=== PATIENT | female | born 1960 | race Caucasian/White ===

== ENCOUNTER → 2016-06-26 | Outpatient (CLI) | payer OTHER ==
[~2016-06-26] MED LIST: ACET-2321 PO; ALBU8.5H INH; ASPI-917 PO; CALC-52 PO; CALC-946 PO; DICL75TA5 PO; DIPH25CA6 PO; EPIN0.3P8 IM; GABA-338 PO; OMEP20TA11 PO; OXYC5TAB84 PO; POLY17PO6 PO; PRED5TAB PO; [UNRECOGNIZED DRUG - CODE] PO; [UNRECOGNIZED DRUG - OTHER] PO
== END ==
LOC: IMA 11:17
PROVIDERS: ATTEND Student in an Organized Health Care Education/Training Program
DX: Z78.0 Asymptomatic menopausal state (principal); E28.39 Other primary ovarian failure; M06.9 Rheumatoid arthritis, unspecified; Z87.828 Personal history of other (healed) physical injury and trauma; Z90.710 Acquired absence of both cervix and uterus

== ENCOUNTER 2017-04-22 15:52 | Inpatient (IN) ==
--- OUTSIDE RECORDS SUMMARY | 2017-04-22 16:24 | External Medical Summary | Continuity of Care Document ---
:1960 Author Organization [facility] Address [address] [place], [place] [id number] Phone Care Team Providers Name Role Phone Joanna Carlton MD Unavailable Unavailable Allergies, Adverse Reactions, Alerts Substance Reaction Severity Status gabapentin Suicidial Ideation Unknown Active latex Unknown Active sulfamethoxazole rash Unknown Active trimethoprim rash Unknown Active cephalexin rash Unknown Active ciprofloxacin rash Unknown Active CIPROFLOXACIN HCL rash Unknown Active Iodinated Contrast- Oral and IV Dye respiratory distress Unknown Active Medications Medication Instructions Dosage Effective Dates Status Comments (start - stop) estradiol 2 mg tablet TAKE ONE TABLET BY - Active MOUTH DAILY cyclobenzaprine 5 mg take 1 tablet by oral 5 MG - Active tablet route 3 times every day albuterol sulfate HFA 90 inhale 2 puff by - Active mcg/actuation aerosol inhalation route inhaler every 4 - 6 hours as needed diclofenac sodium 75 mg take 1 tablet by oral 75 MG - Active tablet,delayed release route 2 times every day EpiPen 0.3 mg/0.3 mL inject 0.3 milliliter 0.3 MG - Active injection, auto-injector by intramuscular route once as needed for anaphylaxis Humira 40 mg/0.8 mL - Active subcutaneous syringe kit magnesium 250 mg tablet - Active Move Free Joint Health - Active 750 mg-100 mg-1.65 mg-108 mg tablet potassium gluconate 550 - Active mg (90 mg) tablet prednisone 20 mg tablet take 1 tablet by oral 20 MG - Active route every day TID x 3d, BID x 3d, QD x 3d, 1/2 tab x 3d Prilosec 20 mg take 1 capsule by - Active capsule,delayed release oral route every day before a meal tramadol 50 mg tablet take 1 tablet by ORAL 50 MG - Active route every bedtime as needed turmeric root extract - Active 500 mg capsule Arthritis Pain Relief take 1 tablet by ORAL 650 MG - Active (acetaminophen) ER 650 route 2 times every mg tablet,extend release day as needed Vitamin D3 5,000 unit - Active tablet Problems Condition Effective Dates (start - stop) Clinical Status 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 exam (general) - (routine) w/o abn findings 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 Provider: est,40-64 Dea RICHARD, patient well (routine) w/o abn 8 700 Joanna yrs [address] woman exam findings [facility], 1522, (chief Center [address] [place] [address], complaint) , [facility], 120, Center [id number], [employer], [facility], [address], tel:[phone] [place] [address] , [facility], [address]. tel: tel:[phone] Gerhard [place] Symptomatic Ozzy-1 Teto Referring In Womens postprocedural 3-201 [place]. Provider: Dea RICHARD, ovarian 6 700 Joanna [address] failureMenopausal [facility], 1522, and female Center [address] [place], climacteric , [facility], [facility] 120, Center [id number], [place], [facility], [address], tel:[phone] [place] [address] , [facility], [address]. tel: tel:[phone] Gerhard [place] Symptomatic May-0 Teto Referring In Womens postprocedural 4-201 Mayelin. Provider: Dea RICHARD, ovarian failure 6 700 Joanna [address] [facility], [address], [address], [facility] [place], 120, Center [id number], [place], [facility], [address], tel:[phone] [place], [id number] , [place], [address]. tel: [phone] Associates [facility] Apr-2 Teto In Womens 1-201 Mayelin. [facility], 6 700 [facility] [address], [address] [place], [facility], 120, [id number], [place], [facility], tel:[phone] , . tel: [phone] Family History Family Member Diagnosis Age At Onset Paternal Grandfather Dementia Brother Hypertension Father Colon Cancer No family history of Uterine Cancer Mother Schizophrenia No family history of Stroke No family history of Pulmonary Embolism No family history of Cardiovascular Disease Maternal Grandmother Colon Cancer Mother Diabetes No family history of Venous Thrombosis No family history of Osteoporosis Father Hypertension No family history of Kidney Disease No family history of Breast Cancer No family history of Ovarian Cancer No family history of Lung Disease No family history of Epilepsy No family history of Thyroid Disorder Father Prostate Cancer Immunizations Vaccine Date Status Comments Unknown Payers Payer name Insurance type Covered constitution party ID Authorization(s) [facility] [id number] Social History Type Description Quantity Date Captured Alcohol Use Details Caffeine Use Details combo Tobacco Use Status Never smoked tobacco Smoking Status Never smoker Non-Smoking Tobacco Use : No Details Available : No Details Available Details Vital Signs Date / Height Weight BMI Pulse Blood Temperature Respiratory Body Head BMI Time: Rate Pressure Rate Surface Circumference percentile Area 65.50 240.00 39.3 77 143/2018 in lbs 3 /min mm[Hg] 1:55 kg/m PM eter (2) Chief Complaint And Reason For Visit Most recent encounter only, dated '04/01/2017 13:45'. an established patient well woman exam (chief complaint). Description: Needs her estrogen renewed. Has been off for awhile as she ran out of the med. Crying way too much and irritable without it. Reason For Referral Reason For Referral Unknown Plan Of Care Date Type Action Status Goal Lifestyle education regarding diet completed Date Type Problem Goal Intervention Status Start Date Unknown. History Of Present Illness Encounter Date Complaint History Of Present Illness an established patient well woman Needs her estrogen renewed. Has exam been off for awhile as she ran out of the med. Crying way too much and irritable without it. Functional Status Encounter Date Functional Assessment Cognitive Assessment Unknown Medications Administered Medication Instructions Dosage Effective Dates (start - stop) Status Comments Drug Treatment Unknown Instructions Date Instruction Additional Information Giving encouragement to exercise Related to Body mass index 39.0- 39.9 Lifestyle education regarding diet Related to Body mass index 39.0-39.9
[2017-04-22] MEDS ORDERED: AZITHROMYCIN IV 500 MG in NS 250ml 250 ML IV ONE (16:32)
[2017-04-22] MEDS ORDERED: METHYLPREDNISOLONE SOD SUCC 125mg/2ml INJECTION IVP ONE (16:32)
[2017-04-22] MEDS: ALBUTEROL/IPRATROPIUM 2.5mg-0.5mg/3ml NEB AEROSOL SCH ×3 (16:38→22:19)
--- NOTE | 2017-04-22 16:40 | Emergency Department Report ---
SOB HPI - General Chief Complaint: Shortness of Breath/Dyspnea Stated Complaint: diff breathing Time Seen by Provider: 04/22/17 16:17 Source: patient, RN notes reviewed, old records reviewed, other (PCM) Mode of arrival: wheelchair Limitations: no limitations - History of Present Illness 56yo woman presented to the ER by her PCM for evaluation of dyspnea. Pt has had seven days of URI sx. Last night, pt spiked a fever (Tmax 100.6'F); today, she could not handle her shortness of breath anymore. Pt presented to her PCMs office; after an initial duoneb, pt was not improved, so PCM sent pt to the ER for further eval/treatment. Pt arrives dyspneic, wheezing, with sinus congestion , and resp distress. MD Complaint: shortness of breath Onset (ago): day(s) (7) Context: recent illness Severity: severe Consistency/Duration: constant Relieving factors: oxygen, rest, bronchodilators Exacerbating factors: movement, inspiration Associated symptoms: fever, cough, wheezing, sputum production, nausea/vomiting Treatment prior to arrival: oxygen, bronchodilator - Related Data Home oxygen amount: none Home Medications Medication Instructions Recorded Confirmed Omeprazole Magnesium [Prilosec Otc] 20 mg PO DAILY #0 02/22/10 04/22/17 Ultram (Tramadol) 50 mg tablet 50 mg PO BID PRN tab 08/28/16 04/22/17 adalimumab 40 mg/0.8 mL 40 mg SQ WEEKLY each 08/28/16 04/22/17 subcutaneous pen kit Estrace (estradiol) 2 mg tablet 2 mg PO DAILY tab 02/19/17 04/22/17 Vitamin D3 (cholecalciferol) 1,000 1,000 unit PO DAILY cap 02/19/17 04/22/17 unit capsule cyclobenzaprine 5 mg tablet 5 mg PO Q8H PRN 02/19/17 04/22/17 Acetaminophen SR [Tylenol 650 mg PO BID 04/22/17 04/22/17 Arthritis] Albuterol HFA Inhaler [Ventolin 2 puff ORAL INH O PRN 04/22/17 04/22/17 Hfa 90 mcg/actuation] Calcium Carbonate [Calcium] 500 mg PO DAILY 04/22/17 04/22/17 Diclofenac Sodium 75 mg PO DAILY 04/22/17 04/22/17 EPINEPHrine Pen [Epipen] 0.3 mg IM PRN PRN 04/22/17 04/22/17 [place]-3/Dha/Epa/Fish Oil [Fish Oil 1 each PO DAILY 04/22/17 04/22/17 1,000 mg Softgel] Allergies Allergy/AdvReac Type Severity Reaction Status Date / Time shellfish derived Allergy Mild HIVES Verified 04/22/17 16:16 cephalexin Allergy Unknown RASH Unverified 04/22/17 16:16 ciprofloxacin Allergy Unknown RASH Unverified 04/22/17 16:16 Iodinated Contrast- Oral and Allergy Unknown SHORT OF Verified 04/22/17 16:16 IV Dye BREATH latex Allergy Unknown SHORT OF Unverified 04/22/17 16:16 BREATH sulfamethoxazole Allergy Unknown RASH Unverified 04/22/17 16:16 trimethoprim Allergy Unknown RASH Unverified 04/22/17 16:16 povidone-iodine AdvReac Unknown severe Unverified 04/22/17 16:16 itching if left on too long soap AdvReac Unknown severe Unverified 04/22/17 16:16 itching if left on too long Review of Systems All systems: reviewed and negative except as stated Constitutional: Reports: as per HPI, fever, weakness. Denies: chills, weight change, night sweats ENT: Reports: as per HPI, congestion. Denies: ear pain, throat pain, dental pain, hearing loss, epistaxis, dysphagia Respiratory: Reports: as per HPI, cough, dyspnea, wheezes. Denies: hemoptysis, stridor Gastrointestinal: Reports: as per HPI, nausea, vomiting. Denies: abdominal pain , diarrhea, constipation, hematemesis, melena, hematochezia [facility] Medical History (Last Reviewed 02/19/17 @ 21:37 by JOSE MANUEL Nair) Osteoarthritis (Chronic Medical) GERD (gastroesophageal reflux disease) (Chronic Medical) Colon polyps (Chronic Medical) Surgical History: hysterectomy. gallbladder. rt ulnar nerve transplant. Left TKA 2012(in [place]). Rt TKA [address] Elise. Nilson Hip 2016 Dr Elise. Exploration right hip incision with draining of sterile seroma in SQ tissues only. 2015. Family History: Family History (Last Reviewed 02/19/17 @ 21:37 by JOSE MANUEL Nair) Mother Arthritis Diabetes Father Colon cancer Prostate cancer Colon polyps High blood pressure Stroke Maternal Grandmother Arthritis Paternal Grandmother Colon cancer - Social History Smoking status: Never smoker Physical Exam - Limitations Limitations: no limitations - General General appearance: alert, in distress (Resp), obese - Head Head exam: atraumatic, normocephalic, normal inspection - Eye Eye exam: Present: normal appearance, PERRL, EOMI. Absent: scleral icterus - ENT ENT exam: Present: mucous membranes moist, TM's normal bilaterally, normal external ear exam. Absent: normal exam, normal oropharynx (Erythema with PND) - Neck Neck exam: Present: normal inspection, full ROM, trachea midline. Absent: tenderness, lymphadenopathy - Chest Chest inspection: Present: normal inspection, symmetric chest wall rise. Absent : tenderness, rash - Respiratory Respiratory exam: Present: respiratory distress, wheezes (Throughout), prolonged expiratory phase, crackles (In RLL). Absent: normal lung sounds bilaterally, stridor - Cardiovascular Cardiovascular exam: Present: regular rate, normal rhythm, normal heart sounds, +S1, +S2. Absent: systolic murmur, diastolic murmur, +S3, +S4 - Abdominal Exam Abdominal exam: Present: soft, normal bowel sounds. Absent: distention, tenderness, guarding, rebound, rigidity - Extremities Exam Extremities exam: Present: normal inspection, full ROM, normal capillary refill. Absent: tenderness, pedal edema - Skin Skin exam: Present: warm, dry, intact. Absent: rash - Neurological Exam Neurological exam: Present: alert, oriented X3, CN II-XII intact, normal gait. Absent: motor sensory deficit - Psychiatric Psychiatric exam: Present: flat affect Course - Consultations Consultation #1: Telehospitalist: Will admit for treatment. Requests ABG. Time: 18:42 Vital Signs Pulse Rate 99 04/22/17 16:32 Pulse Rate 99 04/22/17 16:32 Respiratory Rate 16 04/22/17 17:17 Pulse Oximetry 98 04/22/17 17:17 Shortness of Breath/Dyspnea - [facility] Narrative Medical decision making narrative: Pt cont to use accessory muscles. When discussing dispo, pt agrees to admission for further eval/treatment. - Differential Diagnosis Likely: acute exacerbation of chronic obstructive airways disease, congestive heart failure, community acquired pneumonia, asthma with exacerbation - Medical Records Attestation: I reviewed the patient's medical records. - Lab Data Attestation: I reviewed the patient's lab results. Result diagrams: 04/22/17 17:51 04/22/17 17:51 Lab Results 04/22/17 04/22/17 04/22/17 Range/Units 16:40 17:51 17:51 WBC 3.5 L (4.5-11.0) T/MM3 RBC 4.88 (4.00-5.20) M/MM3 Hgb 14.6 (12-16) GM/DL Hct 45.6 (36-46) % MCV 93.4 (80-100) UM3 MCH 29.9 (26-34) UUG MCHC 32.0 (31-37) GM/DL RDW Std Deviation 43.6 (36.9-50.2) FL Plt Count 165 (130-400) T/MM3 MPV 10.3 (9.4-12.4) UM3 Immature Gran % (Auto) 0.0 (0.0-0.5) % Neut % (Auto) 28.3 L (33-66) % Lymph % (Auto) 56.7 H (23-45) % [place] % (Auto) 11.9 H (0-9.0) % Eos % (Auto) 0.8 (0-4) % Baso % (Auto) 2.3 H (0-2) % Neut # (Auto) 1.0 L (1.8-7.7) T/MM3 Lymph # (Auto) 2.0 (1-4.8) T/MM3 [place] # (Auto) 0.4 (0-0.8) T/MM3 Eos # (Auto) 0.0 (0-0.5) T/MM3 Baso # (Auto) 0.1 (0-0.2) T/MM3 Abs Immat Gran (auto) 0.00 (0.00-0.03) T/MM3 Turbidity < 20 (0-20) Sodium 145 H (134-144) MEQ/L Potassium 3.3 L (3.6-5) MEQ/L Chloride 103 (98-107) MEQ/L Carbon Dioxide 28 (22-30) MEQ/L Anion Gap 14 (5-15) MEQ/L BUN 9.0 (7-17) MG/DL Creatinine 0.7 (0.7-1.2) MG/DL GFR Calculation 87 BUN/Creatinine Ratio 13 (6-26) RATIO Glucose 105 (65-110) MG/DL Calculated Osmolality 278 (261-280) MOSM/KG Calcium 9.2 (8.4-10.2) MG/DL Icterus Index < 2 (0-7) B-Natriuretic Peptide 22.6 (0-175) pg/mL Specimen Hemolysis < 15 (0-25) Influenza Type A (PCR) Positive A* (Negative) Influenza Type B (PCR) Negative (Negative) - Radiology Data Attestation: I reviewed the patient's radiology results. CXR: No acute CT pathology. - EKG Data EKG #1 EKG attestation: Yes: I reviewed and interpreted this EKG. EKG shows normal: sinus rhythm, axis, intervals, ST-T waves Voltage: c/w LVH Disposition Clinical Impression: Respiratory distress, Influenza A Disposition: 02 To [facility] Print Language: Belgian Condition: Stable Prescriptions: No Action Omeprazole Magnesium [Prilosec Otc] 20 mg PO DAILY #0 [place]-3/Dha/Epa/Fish Oil [Fish Oil 1,000 mg Softgel] 1 each PO DAILY Acetaminophen SR [Tylenol Arthritis] 650 mg PO BID Calcium Carbonate [Calcium] 500 mg PO DAILY EPINEPHrine Pen [Epipen] 0.3 mg IM PRN PRN PRN Reason: Prn Orders Diclofenac Sodium 75 mg PO DAILY Albuterol HFA Inhaler [Ventolin Hfa 90 mcg/actuation] 2 puff ORAL INH O PRN PRN Reason: Shortness Of Air/Wheezing adalimumab 40 mg/0.8 mL subcutaneous pen kit 40 mg SQ WEEKLY each cyclobenzaprine 5 mg tablet 5 mg PO Q8H PRN PRN Reason: muscle spasm Ultram (Tramadol) 50 mg tablet 50 mg PO BID PRN tab PRN Reason: pain Vitamin D3 (cholecalciferol) 1,000 unit capsule 1,000 unit PO DAILY cap Estrace (estradiol) 2 mg tablet 2 mg PO DAILY tab Referrals: Joanna Carlton MD [Family Provider] - Time of Disposition: 18:43 - Seen By: physician
[2017-04-22] MEDS: MAGNESIUM SULFATE 1gm PREMIX 1 GM/100 ML BAG IV SCH ×2 (18:53→19:10)
[2017-04-22 20:14] VITALS: BMI 36.4
[2017-04-22] MEDS ORDERED: LABETALOL 100mg/20ml INJECTION IVP PRN (20:52)
--- NOTE | 2017-04-22 21:02 | History & Physical Report ---
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 She reports that she has had a progressive cough since Friday of last week, as well as stuffy nose and sore throat. She reports that her pro air inhaler was helping her symptoms, but today it stopped helping. She reports mild fevers at home. She reports that her son had the flu a few weeks ago and she took Tamiflu prophylactic at that time and finished this last Friday. She went to her PCP's office and was given a duoneb at that time, this did not improve her symptoms and she was sent to ED for further evaluation and treatment. She was found to have influenza A, and to have respiratory distress. She was admitted for further treatment. Review of Systems All systems PM: 10-point ROS was reviewed, no additional remarkable complaints except Past Medical History Patient Stated Medical History Other HEENT Yes: Ear tube in Rt ear Gastroesophageal Reflux Yes: Takes Prilosec for GERD Disease Osteoarthritis Yes Clinic Medical History (Last Reviewed 02/19/17 @ 21:37 by JOSE MANUEL Nair) Osteoarthritis (Chronic Medical) GERD (gastroesophageal reflux disease) (Chronic Medical) Colon polyps (Chronic Medical) Surgical History: hysterectomy. gallbladder. rt ulnar nerve transplant. Left TKA 2012(in [place]). Rt TKA [address] Elise. Nilson Hip 2016 [address] Elise. Exploration right hip incision with draining of sterile seroma in SQ tissues only. 2015. Family History: Family History (Last Reviewed 02/19/17 @ 21:37 by JOSE MANUEL Nair) Mother Arthritis Diabetes Father Colon cancer Prostate cancer Colon polyps High blood pressure Stroke Maternal Grandmother Arthritis Paternal Grandmother Colon cancer Family History Updates: no updates - Social History Smoking status: Never smoker Medications Home Medications Medication Instructions Recorded Confirmed Type Omeprazole Magnesium [Prilosec Otc] 20 mg PO DAILY #0 02/22/10 04/22/17 History Ultram (Tramadol) 50 mg tablet 50 mg PO BID PRN tab 08/28/16 04/22/17 History adalimumab 40 mg/0.8 mL 40 mg SQ WEEKLY each 08/28/16 04/22/17 History subcutaneous pen kit Estrace (estradiol) 2 mg tablet 2 mg PO DAILY tab 02/19/17 04/22/17 History Vitamin D3 (cholecalciferol) 1,000 1,000 unit PO DAILY cap 02/19/17 04/22/17 History unit capsule cyclobenzaprine 5 mg tablet 5 mg PO Q8H PRN 02/19/17 04/22/17 History Acetaminophen SR [Tylenol 650 mg PO BID 04/22/17 04/22/17 History Arthritis] Albuterol HFA Inhaler [Ventolin 2 puff ORAL INH O PRN 04/22/17 04/22/17 History Hfa 90 mcg/actuation] Calcium Carbonate [Calcium] 500 mg PO DAILY 04/22/17 04/22/17 History Diclofenac Sodium 75 mg PO DAILY 04/22/17 04/22/17 History EPINEPHrine Pen [Epipen] 0.3 mg IM PRN PRN 04/22/17 04/22/17 History [place]-3/Dha/Epa/Fish Oil [Fish Oil 1 each PO DAILY 04/22/17 04/22/17 History 1,000 mg Softgel] Allergies Allergy/AdvReac Type Severity Reaction Status Date / Time shellfish derived Allergy Mild HIVES Verified 04/22/17 18:50 cephalexin Allergy Unknown RASH Verified 04/22/17 18:50 ciprofloxacin Allergy Unknown RASH Verified 04/22/17 18:50 Iodinated Contrast- Oral and Allergy Unknown SHORT OF Verified 04/22/17 18:50 IV Dye BREATH latex Allergy Unknown SHORT OF Verified 04/22/17 18:50 BREATH sulfamethoxazole Allergy Unknown RASH Verified 04/22/17 18:50 trimethoprim Allergy Unknown RASH Verified 04/22/17 18:50 povidone-iodine AdvReac Unknown severe Verified 04/22/17 18:50 itching if left on too long soap AdvReac Unknown severe Verified 04/22/17 18:50 itching if left on too long Exam Vital Signs: Pulse Rate 96 04/22/17 19:51 Respiratory Rate 24 04/22/17 19:49 Blood Pressure 165/94 H 04/22/17 19:49 Pulse Oximetry 91 04/22/17 19:49 Height/Weight/BMI: Height 1.7 m Weight 105.6 kg Body Mass Index 36.4 - Constitutional Present: mild distress (due to SOA) - Routine Respiratory Exam Present: wheezes (B/L upper lung wynn) - Routine Cardiovascular Exam Present: RRR. Absent: murmur - Routine Abdominal Exam Present: soft, normoactive bowel sounds, non distended. Absent: tenderness - Routine Extremities Exam Present: normal capillary refill - Routine Neurological Exam Present: alert, oriented X3, CN II-XII intact - Routine Psychiatric Exam Present: normal affect Results - Labs CBC & Chem 7: 04/22/17 17:51 04/22/17 17:51 - ABG Interpretation ABG results: 04/22/17 19:26 VBG pH 7.569 H VBG pCO2 24.0 L VBG pO2 48.0 VBG HCO3 22.0 VBG Total CO2 23.0 VBG O2 Saturation 90.0 VBG Base Excess 1.0 Assessment and Plan (1) Respiratory distress Current visit: Yes Status: Acute (2) Influenza A Current visit: Yes Status: Acute Assessment and Plan: patient admitted, started on aggressive pulm toilet. Given tamiflu in the ED, will start this PO tomorrow. Patient started on duonebs and steroids. Supplemental oxygen for comfort and respiratory distress. Not able get an ABG. Zofran PRN for nausea. Patient is immunosuppressed, but her WBC's at 4.5 at this time. Repeat labs in AM. DVT Prophylaxis: SCD's GI Prophylaxis: Protonix Resuscitation Status: Full Code - Physician Narrative Narrative: Date: 04/22/17 Time: 2055 Hospital Course Summary Disclaimer: The visit summary below is not to be considered part of the above Progress Note.
[2017-04-22] MEDS: METHYLPREDNISOLONE SOD SUCC 125mg/2ml INJECTION IVP SCH (21:21)
[2017-04-22] MEDS: NS 1,000 ML IV SCH (21:21)
[2017-04-22] MEDS: SALINE FLUSH 10ml SYRINGE IVF PRN (21:22)
[2017-04-22] MEDS: ONDANSETRON 4 MG/2 ML INJECTION IVP PRN (21:23)
[2017-04-23] MEDS: ALBUTEROL/IPRATROPIUM 2.5mg-0.5mg/3ml NEB AEROSOL SCH ×8 (02:13→22:25)
[2017-04-23] MEDS: METHYLPREDNISOLONE SOD SUCC 125mg/2ml INJECTION IVP SCH ×2 (03:08→08:17)
[2017-04-23] MEDS: NS 1,000 ML IV SCH (07:59)
--- NOTE | 2017-04-23 08:12 | XRay Report ---
INDICATION: Dyspnea PROCEDURE: CHEST 2-VIEWS UPRIGHT (PA & LAT) Encounter: Initial COMPARISON: June 26, 2015 FINDINGS: The lungs are clear without evidence of focal abnormal airspace opacity. There is no pleural effusion or pneumothorax. The heart size, mediastinal contours and pulmonary vascularity are within normal limits. There is no significant skeletal abnormality. IMPRESSION: No acute cardiopulmonary disease. .
[2017-04-23] MEDS ORDERED: ALBUTEROL/IPRATROPIUM 2.5mg-0.5mg/3ml NEB AEROSOL SCH ×2 (15:00→21:00)
--- NOTE | 2017-04-23 16:48 | History & Physical Report ---
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 She tested positive for Influenza A and was admitted due to respiratory distress. Patient was started on Tamiflu, steroids and IVF. She reports multiple allergies and her shortness of breath feels like when she has an exposure to one of the allergens. She also reports that breathing treatments have been helping but wear off after approx 3 hours. Review of Systems - Constitutional Constitutional: Present: as per HPI, fever(s), weakness - EENMT Eyes: Absent: blurry vision, diplopia Balance: Absent: vertigo Nose: Absent: nosebleeds Mouth/Throat: Absent: sore throat, painful swallowing - Cardiovascular Cardiovascular: Present: dyspnea on exertion. Absent: palpitations, orthopnea, edema Rhythm: Present: regular rhythm Vascular: Absent: pedal edema - Respiratory Respiratory: Present: cough, dyspnea, dyspnea on exertion, chest congestion. Absent: hemoptysis, wheezing, pain on inspiration - Gastrointestinal Gastrointestinal: Absent: abdominal pain, change in bowel habits - Musculoskeletal Musculoskeletal: Absent: abnormal gait - Neurological Neurological: Present: headache(s). Absent: abnormal movements, abnormal speech - Allergic/Immunologic Allergic/Immunologic: Absent: tongue swelling, throat swelling, itchy eyes, urticaria Past Medical History Patient Stated Medical History Other HEENT Yes: Ear tube in Rt ear Gastroesophageal Reflux Yes: Takes Prilosec for GERD Disease Osteoarthritis Yes Clinic Medical History (Last Reviewed 02/19/17 @ 21:37 by JOSE MANUEL Nair) Osteoarthritis (Chronic Medical) GERD (gastroesophageal reflux disease) (Chronic Medical) Colon polyps (Chronic Medical) Surgical History: hysterectomy. gallbladder. rt ulnar nerve transplant. Left TKA 2012(in [place]). Rt TKA [address] Elise. [place] Hip 2016 Dr Elise. Exploration right hip incision with draining of sterile seroma in SQ tissues only. 2016. Family History Updates: Family History (Last Reviewed 02/19/17 @ 21:37 by JOSE MANUEL Nair). Mother. Arthritis. Diabetes. Father. Colon cancer. Prostate cancer. Colon polyps. High blood pressure. Stroke. Maternal Grandmother. Arthritis. Paternal Grandmother. Colon cancer - Social History Smoking status: Never smoker Current residence: [facility] Medications Home Medications Medication Instructions Recorded Confirmed Type Omeprazole Magnesium [Prilosec Otc] 20 mg PO DAILY #0 02/22/10 04/22/17 History Ultram (Tramadol) 50 mg tablet 50 mg PO BID PRN tab 08/28/16 04/22/17 History adalimumab 40 mg/0.8 mL 40 mg SQ WEEKLY each 08/28/16 04/22/17 History subcutaneous pen kit Estrace (estradiol) 2 mg tablet 2 mg PO DAILY tab 02/19/17 04/22/17 History Vitamin D3 (cholecalciferol) 1,000 1,000 unit PO DAILY cap 02/19/17 04/22/17 History unit capsule cyclobenzaprine 5 mg tablet 5 mg PO Q8H PRN 02/19/17 04/22/17 History Acetaminophen SR [Tylenol 650 mg PO BID 04/22/17 04/22/17 History Arthritis] Albuterol HFA Inhaler [Ventolin 2 puff ORAL INH O PRN 04/22/17 04/22/17 History Hfa 90 mcg/actuation] Calcium Carbonate [Calcium] 500 mg PO DAILY 04/22/17 04/22/17 History Diclofenac Sodium 75 mg PO BID 04/22/17 04/23/17 History EPINEPHrine Pen [Epipen] 0.3 mg IM PRN PRN 04/22/17 04/22/17 History [place]-3/Dha/Epa/Fish Oil [Fish Oil 1 each PO DAILY 04/22/17 04/22/17 History 1,000 mg Softgel] Allergies Allergy/AdvReac Type Severity Reaction Status Date / Time shellfish derived Allergy Mild HIVES Verified 04/22/17 18:50 cephalexin Allergy Unknown RASH Verified 04/22/17 18:50 ciprofloxacin Allergy Unknown RASH Verified 04/22/17 18:50 Iodinated Contrast- Oral and Allergy Unknown SHORT OF Verified 04/22/17 18:50 IV Dye BREATH latex Allergy Unknown SHORT OF Verified 04/22/17 18:50 BREATH sulfamethoxazole Allergy Unknown RASH Verified 04/22/17 18:50 trimethoprim Allergy Unknown RASH Verified 04/22/17 18:50 povidone-iodine AdvReac Unknown severe Verified 04/22/17 18:50 itching if left on too long soap AdvReac Unknown severe Verified 04/22/17 18:50 itching if left on too long Exam Vital Signs: Temperature 97.9 F 04/23/17 15:40 Pulse Rate 82 02/21/18 15:40 Respiratory Rate 18 04/23/17 15:40 Blood Pressure 138/91 H 04/23/17 15:40 Pulse Oximetry 94 04/23/17 15:40 Height/Weight/BMI: Height 5 ft 7 in Weight 107.5 kg Body Mass Index 36.4 - Constitutional Present: no acute distress Comments: ill appearing but not toxic - Routine HEENT Exam Head: Present: normocephalic, atraumatic Eye: Present: EOMI, conjunctivae pink ENT: Present: mucous membranes moist - Routine Neck Exam Present: supple. Absent: JVD - Routine Chest/Breast/Axilla Exam Chest wall: Absent: tenderness - Routine Respiratory Exam Present: dyspnea, diminished air movement. Absent: accessory muscle use - Routine Cardiovascular Exam Present: RRR, no murmur - Routine Abdominal Exam Present: soft, normoactive bowel sounds. Absent: tenderness - Routine Extremities Exam Present: no edema - Routine Skin Exam Present: intact, dry, warm - Routine Neurological Exam Present: alert, oriented X3, CN II-XII intact - Routine Psychiatric Exam Present: normal affect, good insight Results - Labs CBC & Chem 7: 04/23/17 04:38 04/23/17 04:38 - ABG Interpretation ABG results: 04/22/17 19:26 VBG pH 7.569 H VBG pCO2 24.0 L VBG pO2 48.0 VBG HCO3 22.0 VBG Total CO2 23.0 VBG O2 Saturation 90.0 VBG Base Excess 1.0 Assessment and Plan (1) Respiratory distress Current visit: Yes Status: Acute (2) Influenza A Current visit: Yes Status: Acute Assessment and Plan: Assessment Influenza A Dehydration-resolved Respiratory distress Immunosuppressed (Humira) Generalized Weakness Plan Continue Tamiflu Discontinue IVF and monitor intake Decrease steroids Increase breathing treatment frequency Oxygen as needed to maintain sats >90 Continued admission for treatment of resp distress and influenza - Physician Narrative Narrative: Date: 04/23/17 Time: 1643 Hospital Course Summary Disclaimer: The visit summary below is not to be considered part of the above Progress Note.
[2017-04-23] MEDS ORDERED: LABETALOL 100mg/20ml INJECTION IVP PRN (17:00)
[2017-04-23] MEDS: DICLOFENAC SODIUM DR 25 MG TABLET PO SCH (18:16)
[2017-04-23] MEDS: ONDANSETRON 4 MG/2 ML INJECTION IVP PRN (20:09)
[2017-04-23] MEDS: TRAMADOL 50 MG TABLET PO PRN (22:02)
[2017-04-24] MEDS: CYCLOBENZAPRINE 5 MG TABLET PO PRN (00:02)
[2017-04-24] MEDS: ALBUTEROL/IPRATROPIUM 2.5mg-0.5mg/3ml NEB AEROSOL SCH ×8 (01:15→22:02)
[2017-04-24] MEDS ORDERED: DICLOFENAC SODIUM DR 25 MG TABLET PO SCH (08:00)
[2017-04-24] MEDS ORDERED: PredniSONE 20 MG TABLET PO SCH (08:00)
[2017-04-24] MEDS ORDERED: SENNA + DOCUSATE TABLET PO PRN (09:16)
--- NOTE | 2017-04-24 09:33 | Progress Note ---
- Date 04/24/17 Subjective: F/U: respiratory distress, influenza A. Lupe is seen this morning while sleeping in bed and awakens easily with soft voice stimuli. She reports that she slept ok and denies any new complains or concerns. She continues to alternate between sweating and chills with frequent , non-productive cough. Her appetite is stable and she is passing gas, though no BM since admission. She continues to require respiratory support with breathing treatments every 3 hours with brief improvement. She remains on room air without documented fevers. No chest pain, abdominal pain, vomiting or dysuria. She does admit to some mild nausea occasionally in the mornings but denies any currently. Objective Vital signs: Temperature 97.8 F 04/23/17 20:13 Pulse Rate 84 04/24/17 00:00 Respiratory Rate 14 04/24/17 07:51 Blood Pressure 154/86 H 04/23/17 20:13 Pulse Oximetry 96 04/24/17 07:51 Rhythm: Normal Sinus Rhythm Height/Weight/BMI: Height 5 ft 7 in Weight 236 lb 15.951 oz Body Mass Index 36.4 Comments: Patient is sleeping in bed and awakens easily with soft voice stimuli. - Constitutional Present: no acute distress, well nourished, well developed, morbidly obese, cooperative - Routine HEENT Exam Head: Present: normocephalic, atraumatic Eye: Present: PERRL. Absent: conjunctival icterus ENT: Present: mucous membranes moist, oropharynx clear - Routine Respiratory Exam Present: decreased breath sounds, wheezes (diffuse), diminished air movement. Absent: rhonchi Comments: Slight audible wheezing noted on exam with mild conversational dyspnea at 4-5 words following exertion. - Routine Cardiovascular Exam Present: RRR, S1, S2 - Routine Abdominal Exam Present: soft, normoactive bowel sounds, non distended, non tender - Routine Extremities Exam Present: no edema, non tender, full ROM, pulses intact - Routine Back/Spine/Pelvis Exam Back/Spine: Present: full ROM. Absent: vertebral tenderness - Routine Musculoskeletal Exam Musculoskeletal: Present: moving extremities well - Routine Skin Exam Present: intact, dry, warm. Absent: jaundice Comments: afebrile - Routine Neurological Exam Present: alert, oriented X3, moving all extremities, normal speech. Absent: facial asymmetry - Routine Lymphatic Exam Lymphatic: Absent: lymphedema - Routine Psychiatric Exam Present: normal affect, cooperative Results - Labs CBC & Chem 7: 04/24/17 03:54 04/24/17 03:54 - ABG Interpretation ABG results: 04/22/17 19:26 VBG pH 7.569 H VBG pCO2 24.0 L VBG pO2 48.0 VBG HCO3 22.0 VBG Total CO2 23.0 VBG O2 Saturation 90.0 VBG Base Excess 1.0 Assessment and Plan (1) Respiratory distress Current visit: Yes Status: Acute (2) Influenza A Current visit: Yes Status: Acute Assessment and Plan: Assessment Influenza A Dehydration-resolved Respiratory distress, improving. Immunosuppressed (Humira) Generalized Weakness Plan - 04/24/17 Continue Tamiflu. Blood cultures remain negative x 1 day. Respiratory distress improving though persistent diffuse wheezing despite breathing treatments Q3H. Continue respiratory cares and breathing treatments. Will recheck CXR now given cough. Will add Mucinex for mucolytic effect. Patient oral intake stable. Steroid changed to oral prednisone today at 40mg daily. Patient remains stable on room air. Oxygen as needed to maintain sats >90. WBC increased and remains stable - most likely secondary to steroid effect. Will continue to monitor. Prilosec for GI protection. SCDs for DVT prophylaxis. Senna + and miralax for bowel motivation. DVT Prophylaxis: SCD's GI Prophylaxis: other (Prilosec) Resuscitation Status: Full Code - Time spent with patient Time with patient PN: 25 minutes - Physician Narrative Physician: other (Dr. Henderson) Narrative: Date: 04/24/17 Time: 1123 Patient continues to have shortness of air and wheezing. Does not feel like she could go home at this point. Scattered wheezes on exam with last breathing treatment one hour ago Plan: increase steroids, increase breathing treatments. Continued admission until patient not requiring frequent breathing treatments. Hospital Course Summary Disclaimer: The visit summary below is not to be considered part of the above Progress Note. Hospital Course: Plan - 04/24/17 Continue Tamiflu. Blood cultures remain negative x 1 day. Respiratory distress improving though persistent diffuse wheezing despite breathing treatments Q3H. Continue respiratory cares and breathing treatments. Will recheck CXR now given cough. Will add Mucinex for mucolytic effect. Patient oral intake stable. Steroid changed to oral prednisone today at 40mg daily. Patient remains stable on room air. Oxygen as needed to maintain sats >90. WBC increased and remains stable - most likely secondary to steroid effect. Will continue to monitor. Prilosec for GI protection. SCDs for DVT prophylaxis. Senna + and miralax for bowel motivation.
[2017-04-24] MEDS ORDERED: ALBUTEROL/IPRATROPIUM 2.5mg-0.5mg/3ml NEB AEROSOL PRN (09:34)
[2017-04-24] MEDS: CALCIUM CARBONATE 500 MG TABLET PO SCH (10:31)
[2017-04-24] MEDS: OMEPRAZOLE 20 MG CAPSULE PO SCH (10:31)
[2017-04-24] MEDS: DICLOFENAC SODIUM DR 25 MG TABLET PO SCH ×2 (10:32→17:16)
[2017-04-24] MEDS: ESTRADIOL 2 MG TABLET PO SCH (10:32)
[2017-04-24] MEDS: SALINE FLUSH 10ml SYRINGE IVF PRN ×3 (10:35→19:05)
--- NOTE | 2017-04-24 10:59 | XRay Report ---
INDICATION: cough/wheezing PROCEDURE: CHEST 2-VIEWS UPRIGHT (PA & LAT) Encounter: Initial COMPARISON: April 22, 2017 FINDINGS: The lungs are clear without evidence of focal abnormal airspace opacity. There is no pleural effusion or pneumothorax. The heart size, mediastinal contours and pulmonary vascularity are within normal limits. There is no significant skeletal abnormality. IMPRESSION: No acute cardiopulmonary disease. .
[2017-04-24] MEDS: POLYETHYL GLYCOL 3350 17gm PACKET PO SCH (11:00)
[2017-04-24] MEDS: METHYLPREDNISOLONE SOD SUCC 40mg/ml INJECTION IVP SCH ×2 (12:27→19:05)
[2017-04-24] MEDS: TRAMADOL 50 MG TABLET PO PRN ×2 (13:59→23:37)
[2017-04-24] MEDS: GUAIFENESIN LA 600 MG TABLET PO SCH (21:01)
[2017-04-25] MEDS: ALBUTEROL/IPRATROPIUM 2.5mg-0.5mg/3ml NEB AEROSOL SCH ×8 (01:28→23:54)
[2017-04-25] MEDS: ONDANSETRON 4 MG/2 ML INJECTION IVP PRN (01:58)
[2017-04-25] MEDS: CYCLOBENZAPRINE 5 MG TABLET PO PRN ×2 (01:59→10:59)
[2017-04-25] MEDS: METHYLPREDNISOLONE SOD SUCC 40mg/ml INJECTION IVP SCH ×3 (04:15→20:51)
[2017-04-25] MEDS: OMEPRAZOLE 20 MG CAPSULE PO SCH (06:52)
[2017-04-25] MEDS: DICLOFENAC SODIUM DR 25 MG TABLET PO SCH ×2 (08:12→16:40)
[2017-04-25] MEDS: CALCIUM CARBONATE 500 MG TABLET PO SCH (08:12)
[2017-04-25] MEDS: GUAIFENESIN LA 600 MG TABLET PO SCH ×2 (08:13→20:52)
[2017-04-25] MEDS: ESTRADIOL 2 MG TABLET PO SCH (08:13)
[2017-04-25] MEDS: POLYETHYL GLYCOL 3350 17gm PACKET PO SCH (08:14)
[2017-04-25] MEDS: TRAMADOL 50 MG TABLET PO PRN (11:15)
--- NOTE | 2017-04-25 13:28 | Progress Note ---
- Date 04/25/17 Subjective: F/U: respiratory distress, influenza A. Patient is seen lying in bed. She was just up ambulating to the bathroom is very short of breath and wheezy. She feels very weak. She is frustrated that she is not getting better. She has some nausea. Not much of an appetite. No bowel movement for several days, has taken some milk of magnesia today. No urinary problems. Objective Vital signs: Temperature 98.1 F 04/25/17 07:31 Pulse Rate 85 04/25/17 07:31 Respiratory Rate 20 04/25/17 11:01 Blood Pressure 153/94 H 04/25/17 07:31 Pulse Oximetry 97 04/25/17 11:01 Rhythm: Normal Sinus Rhythm Height/Weight/BMI: Height 1.7 m Weight 108.8 kg Body Mass Index 36.4 - Constitutional Present: no acute distress, well nourished, well developed - Routine HEENT Exam Head: Present: normocephalic, atraumatic - Routine Respiratory Exam Present: dyspnea, decreased breath sounds, wheezes (diffuse), diminished air movement - Routine Cardiovascular Exam Present: RRR, no murmur - Routine Abdominal Exam Present: soft, non distended, non tender - Routine Extremities Exam Present: no edema, normal capillary refill - Routine Skin Exam Present: dry, warm - Routine Neurological Exam Present: alert, oriented X3 - Routine Lymphatic Exam Lymphatic: Absent: adenopathy - Routine Psychiatric Exam Present: normal affect, cooperative Results - Labs CBC & Chem 7: 04/24/17 03:54 04/24/17 03:54 Assessment and Plan (1) Respiratory distress Current visit: Yes Status: Acute (2) Influenza A Current visit: Yes Status: Acute Assessment and Plan: Assessment Influenza A Dehydration-resolved Respiratory distress, improving. Immunosuppressed (Humira) Generalized Weakness Plan Continue Tamiflu. Blood cultures remain negative x 2 day. Respiratory distress improving though persistent diffuse wheezing. She is still requesting/requiring breathing treatments every 3 hours. Continue IV Solu- Medrol. Hopefully change to p.o. tomorrow and decrease breathing treatment frequency. Patient remains stable on room air, despite her persistent wheezing.. WBC increased - most likely secondary to steroid effect. Will continue to monitor. MiraLAX and Senna for bowel motivation. Repeat milk of magnesia if she doesn't have results within the next several hours. - Physician Narrative Physician: other (Xiomara Henderson MD) Narrative: Date: 04/25/17 Time: 1429 Patient examined independently and chart reviewed. Discussed with PA and directed plan of care. Agree with above documentation with the following additions/changes... Patient continues to have expiratory wheezes and significant shortness of air. Denies any previous history of lung disease. Was on methotrexate for 4 years and currently is on humira. expiratory wheezes diffusely on exam Plan: CT chest due to history and continued respiratory concerns. Suspect underlying RAD or complications from medications. Will likely need pulm follow up. Hospital Course Summary Disclaimer: The visit summary below is not to be considered part of the above Progress Note. Hospital Course: 04/24/17 Continue Tamiflu. Blood cultures remain negative x 1 day. Respiratory distress improving though persistent diffuse wheezing despite breathing treatments Q3H. Continue respiratory cares and breathing treatments. Will recheck CXR now given cough. Will add Mucinex for mucolytic effect. Patient oral intake stable. Steroid changed to oral prednisone today at 40mg daily. Patient remains stable on room air. Oxygen as needed to maintain sats >90. WBC increased and remains stable - most likely secondary to steroid effect. Will continue to monitor. Prilosec for GI protection. SCDs for DVT prophylaxis. Senna + and miralax for bowel motivation. 04/25/17 Continue Tamiflu. Blood cultures remain negative x 2 day. Respiratory distress improving though persistent diffuse wheezing. She is still requesting/requiring breathing treatments every 3 hours. Continue IV Solu- Medrol. Hopefully change to p.o. tomorrow and decrease breathing treatment frequency. Patient remains stable on room air, despite her persistent wheezing.. WBC increased - most likely secondary to steroid effect. Will continue to monitor. MiraLAX and Senna for bowel motivation. Repeat milk of magnesia if she doesn't have results within the next several hours.
--- NOTE | 2017-04-25 15:34 | CT Scan Report ---
Indication: wheezing, chronic immunologic use PROCEDURE: CT chest wo con: Encounter: Initial Comparison: Chest x-ray from yesterday Technique: Axial CT images were performed through the chest without intravenous contrast. Coronal and sagittal two-dimensional reformats. Automated Exposure Control and Iterative Reconstruction dose reducing techniques were utilized. Findings: Azygos fissure noted incidentally. The lungs are clear. No consolidative pneumonia, pleural effusion or pneumothorax. No concerning pulmonary nodules or masses. The central airways are patent. No axillary or mediastinal adenopathy. Heart size is normal. No pericardial effusion. The upper abdomen shows no acute findings. Bone windows show mild degenerative change in the cervical and lumbar spine. Impression: No acute disease process seen. .
[2017-04-26] MEDS: TRAMADOL 50 MG TABLET PO PRN (00:33)
[2017-04-26] MEDS: CYCLOBENZAPRINE 5 MG TABLET PO PRN (00:33)
[2017-04-26] MEDS: METHYLPREDNISOLONE SOD SUCC 40mg/ml INJECTION IVP SCH ×2 (03:19→12:28)
[2017-04-26] MEDS: ALBUTEROL/IPRATROPIUM 2.5mg-0.5mg/3ml NEB AEROSOL SCH ×7 (03:20→19:45)
[2017-04-26] MEDS: OMEPRAZOLE 20 MG CAPSULE PO SCH (05:59)
[2017-04-26] MEDS: ESTRADIOL 2 MG TABLET PO SCH (09:13)
[2017-04-26] MEDS: DICLOFENAC SODIUM DR 25 MG TABLET PO SCH ×2 (09:13→18:04)
[2017-04-26] MEDS: GUAIFENESIN LA 600 MG TABLET PO SCH (09:14)
[2017-04-26] MEDS: CALCIUM CARBONATE 500 MG TABLET PO SCH (09:15)
[2017-04-26] MEDS: POLYETHYL GLYCOL 3350 17gm PACKET PO SCH (09:16)
[2017-04-26] MEDS ORDERED: BISACODYL 10 MG SUPPOSITORY RECTALLY ONE (10:33)
--- NOTE | 2017-04-26 14:54 | Discharge Summary ---
Discharge Information Date of admission: 04/22/17 19:04 Anticipated date of discharge: 04/26/17 Attending Physician: Mely Araiza MD Primary care physician: Joanna Carlton MD - Discharge Diagnosis (1) Respiratory distress Status: Acute (2) Influenza A Status: Acute Influenza A Dehydration-resolved Respiratory distress, improving. Immunosuppressed (Humira) Generalized Weakness - Laboratory Labs: 04/26/17 04:53 04/26/17 04:53 Laboratory Tests 04/22/17 19:26 VBG pH 7.569 H VBG pCO2 24.0 L VBG pO2 48.0 VBG HCO3 22.0 VBG Total CO2 23.0 VBG O2 Saturation 90.0 VBG Base Excess 1.0 O2 Delivery Method Room air Laboratory Tests 04/22/17 16:40 Influenza Type A (PCR) Positive A* - Radiology Radiology: = = = = = = = = = = = = = = = = = = = = = = = = = = = = = = = = = = = = = = = = = = = = = = = = = = = = = = = = = = = Date of Exam: 04/25/17 Indication: wheezing, chronic immunologic use PROCEDURE: CT chest wo con: Findings: Azygos fissure noted incidentally. The lungs are clear. No consolidative pneumonia, pleural effusion or pneumothorax. No concerning pulmonary nodules or masses. The central airways are patent. No axillary or mediastinal adenopathy. Heart size is normal. No pericardial effusion. The upper abdomen shows no acute findings. Bone windows show mild degenerative change in the cervical and lumbar spine. Impression: No acute disease process seen. = = = = = = = = = = = = = = = = = = = = = = = = = = = = = = = = = = = = = = = = = = = = = = = = = = = = = = = = = = = Date of Exam: 04/24/17 INDICATION: cough/wheezing PROCEDURE: CHEST 2-VIEWS UPRIGHT (PA & LAT) FINDINGS: The lungs are clear without evidence of focal abnormal airspace opacity. There is no pleural effusion or pneumothorax. The heart size, mediastinal contours and pulmonary vascularity are within normal limits. There is no significant skeletal abnormality. IMPRESSION: No acute cardiopulmonary disease. 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 She tested positive for Influenza A and was admitted due to respiratory distress. Patient was started on Tamiflu, steroids and IVF. She reports multiple allergies and her shortness of breath feels like when she has an exposure to one of the allergens. She also reports that breathing treatments have been helping but wear off after approx 3 hours. Objective Vital signs: Temperature 98.5 F 04/26/17 07:47 Pulse Rate 85 04/26/17 09:00 Respiratory Rate 16 04/26/17 14:34 Blood Pressure 145/84 H 04/26/17 07:47 Pulse Oximetry 97 04/26/17 14:34 Rhythm: Normal Sinus Rhythm Height/Weight/BMI: Height 1.7 m Weight 108.9 kg Body Mass Index 36.4 - Constitutional Present: no acute distress, well nourished, well developed - Routine HEENT Exam Head: Present: normocephalic, atraumatic - Routine Respiratory Exam Present: CTA bilaterally, wheezes (only slight wheezes heard today on expiration at time of exam. Moving air much better today.) - Routine Cardiovascular Exam Present: RRR, no murmur - Routine Abdominal Exam Present: soft, non distended, non tender - Routine Extremities Exam Present: no edema, normal capillary refill - Routine Skin Exam Present: dry, warm - Routine Neurological Exam Present: alert, oriented X3 - Routine Lymphatic Exam Lymphatic: Absent: adenopathy - Routine Psychiatric Exam Present: normal affect, cooperative Hospital Course This is a general summary of the patient's hospital course. For more details refer to the complete medical record. Hospital course: 04/24/17 Continue Tamiflu. Blood cultures remain negative x 1 day. Respiratory distress improving though persistent diffuse wheezing despite breathing treatments Q3H. Continue respiratory cares and breathing treatments. Will recheck CXR now given cough. Will add Mucinex for mucolytic effect. Patient oral intake stable. Steroid changed to oral prednisone today at 40mg daily. Patient remains stable on room air. Oxygen as needed to maintain sats >90. WBC increased and remains stable - most likely secondary to steroid effect. Will continue to monitor. Prilosec for GI protection. SCDs for DVT prophylaxis. Senna + and miralax for bowel motivation. 04/25/17 Continue Tamiflu. Blood cultures remain negative x 2 day. Respiratory distress improving though persistent diffuse wheezing. She is still requesting/requiring breathing treatments every 3 hours. Continue IV Solu- Medrol. Hopefully change to p.o. tomorrow and decrease breathing treatment frequency. Patient remains stable on room air, despite her persistent wheezing.. WBC increased - most likely secondary to steroid effect. Will continue to monitor. MiraLAX and Senna for bowel motivation. Repeat milk of magnesia if she doesn't have results within the next several hours. 04/26/17 Dismissed patient home today. Prednisone 40 mg daily for a week. She was given a prescription to get a breath activated nebulizer to use DuoNeb routinely until her symptoms resolve. She was also given prescription for spacer to use with her albuterol inhaler. Finish out her course of Tamiflu. Patient is to call Dr. Carlton's office on Friday to schedule follow-up appointment for this coming week. Time spent with patient: greater than 35 minutes Resuscitation Status: Full Code Discharge Plan - Discharge Disposition Discharge Date: 04/26/17 Disposition: 01 Discharged Home, Self-Care *Condition: Stable Reason For Visit (Visit label in EMR): respiratory distress, influenza A - Discharge Medications *Discharge Medications: New Inhaler Assist Device - Spacer [Optichamber] 1 each MC Q4H PRN #1 spacer PRN Reason: use with inhaler Nebulizer Accessories [Aeroneb Go] 1 each MC Q4H PRN #1 each PRN Reason: nebulizer for cough/wheeze/SOA Oseltamivir Cap [Tamiflu] 75 mg PO BID #3 cap Albuterol/Ipratropium [Duoneb] 3 ml AEROSOL Q4H PRN #60 each PRN Reason: cough, sob, wheeze Guaifenesin LA [Mucinex LA] 1,200 mg PO BID tab predniSONE [Prednisone] 40 mg PO DAILY #7 tab Continue Omeprazole Magnesium [Prilosec Otc] 20 mg PO DAILY #0 Section-3/Dha/Epa/Fish Oil [Fish Oil 1,000 mg Softgel] 1 each PO DAILY Acetaminophen SR [Tylenol Arthritis] 650 mg PO BID Calcium Carbonate [Calcium] 500 mg PO DAILY EPINEPHrine Pen [Epipen] 0.3 mg IM PRN PRN PRN Reason: Prn Orders Diclofenac Sodium 75 mg PO BID Albuterol HFA Inhaler [Ventolin Hfa 90 mcg/actuation] 2 puff ORAL INH O PRN PRN Reason: Shortness Of Air/Wheezing adalimumab 40 mg/0.8 mL subcutaneous pen kit 40 mg SQ WEEKLY each cyclobenzaprine 5 mg tablet 5 mg PO Q8H PRN PRN Reason: muscle spasm Ultram (Tramadol) 50 mg tablet 50 mg PO BID PRN tab PRN Reason: pain Vitamin D3 (cholecalciferol) 1,000 unit capsule 1,000 unit PO DAILY cap Estrace (estradiol) 2 mg tablet 2 mg PO DAILY tab - Discharge Packet/Instructions *Diet: regular diet *Activity: as tolerated. Do not exert yourself much until your breathing has improved. *Pain Management/Treatment: per med list *Wound Care: n/a *Expected Signs/Symptoms: slow improvement in strength and breathing capacity *Notify Physician if: you develop fever or worsening shortness of breath *During Business Hours Contact: Dr Carlton's office *After Business Hours Contact: [facility] *Pending Lab/Results: No Pending Lab - Referrals/Follow Up *Referrals/Follow Up: Joanna Carlton MD [Family Provider] - (schedule with Dr Carlton within one week) - Patient Handouts Patient Handouts: Influenza (GEN) - Dismissal Complete Discharge Instructions are:: Complete Physician Narrative - Narrative Physician: Mely Araiza MD Attestation Narrative: Date: 04/26/17 Time: 162 I have independently evaluated and examined this patient. I reviewed the chart, the patient's history, and the [employer]/PA's documented findings as above. We discussed and formulated the assessment and plan as above with additions as below: Lupe reports dyspnea has improved at rest although she still has exertional dyspnea; she describes feeling as though her lungs of opened up today. Peak flows were 350/400 pre-and posttreatment earlier today. She does not have a formal diagnosis of asthma but has extensive allergies and has previously been treated with albuterol MDI making me suspicious that there is underlying reactive airway disease which is been triggered with current influenza A URI/ bronchitis. NAD at rest Respirations nonlabored with good airflow, breath sounds are clear until expirations are forced at which time late expiratory wheezing is present. Regular rhythm Stable for discharge on oral steroids and continued albuterol/Atrovent. Patient asked to continue monitoring peak flows 1 or 2 times a day to quantify response to treatment.
[2017-04-26 15:55] VITALS: BP 150/96; PULSE 93; TEMP 97.9; O2SAT 98
[2017-04-26 17:50] VITALS: RESP 18
[2017-04-26] MEDS ORDERED: PredniSONE 20 MG TABLET PO ONE (18:09)
== END 2017-04-26 20:00 | disposition home or self-care (01) | DRG 195 ==
LOC: ED 15:52 → MED 19:04 → SUATTDRO 19:04 → MED 19:53
PROVIDERS: ADMIT Internal Medicine; ATTEND Internal Medicine